=== PATIENT | female | born 1985 | race Hispanic/Latino ===

== ENCOUNTER 2020-11-26 11:48 | Emergency (ER) | payer MEDICAID, OTHER ==
[~2020-11-26] VITALS: Ht 149.9 cm; Wt 68.0 kg
[~2020-11-26 11:48] MED LIST: LANS1COM10 PO; TYL3 PO
[2020-11-26 11:49] VITALS: BP 124/74
[2020-11-26 12:17] LABS: HCG,QUAL RESULT NEGATIVE (NEGATIVE)
[2020-11-26 12:18] LABS: BASOPHILS % (AUTO) 0.8 % (0.0-5.0); EOSINOPHILS % (AUTO) 2.2 % (0.0-8.0); HEMATOCRIT 35.4 % (36-48); LYMPHOCYTES % (AUTO) 23.6 % (21.0-51.0); MEAN CORPUSCULAR HEMOGLOBIN 23.4 pg (27.0-33.0); MEAN CORPUSCULAR HGB CONC 31.6 g/dL (32.0-36.0); MEAN CORPUSCULAR VOLUME 73.9 fL (79-99); MONOCYTES % (AUTO) 7.4 % (3.0-13.0); NEUTROPHILS % (AUTO) 65.6 % (40.0-77.0); PLATELET COUNT (AUTO) 420 K/uL (130-400); RED BLOOD CELL COUNT(AUTO) 4.79 MIL/uL (4.00-5.50); RED CELL DISTRIBUTION WIDTH 15.7 % (11.0-15.5); WHITE BLOOD COUNT (AUTO) 8.5 K/uL (4.8-10.8)
[2020-11-26 12:20] LABS: APPEARANCE,URINE Clear (CLEAR); BILIRUBIN,URINE Negative (NEGATIVE); COLOR,URINE Yellow (YELLOW); GLUCOSE, URINE (UA) Negative (NEGATIVE); KETONES,URINE Negative (NEGATIVE); LEUKOCYTE ESTERASE ,URINE Negative (NEGATIVE); NITRATE,URINE Negative (NEGATIVE); OCCULT BLOOD,URINE Negative (NEGATIVE); PH,URINE 6.5 (5.0-8.0); PROTEIN,URINE Negative (NEGATIVE); UROBILINOGEN,URINE 0.2 mg/dL (0.2-1.0)
[2020-11-26 12:30] LABS: CREATININE 0.7 mg/dL (0.5-1.5); POTASSIUM 3.9 mmol/L (3.5-5.1)
[2020-11-26 12:32] LABS: INR 1.04 (0.85-1.15); PROTHROMBIN TIME 11.3 SEC (9.6-11.6)
[2020-11-26 12:34] LABS: ALBUMIN 3.8 g/dL (3.5-5.0); BILIRUBIN,TOTAL 0.4 mg/dL (0.2-1.0); TOTAL PROTEIN, SERUM 8.4 g/dL (6.0-8.3)
[2020-11-26] MEDS ORDERED: KETOROLAC 30MG VIAL (30MG/ML) IM SCH (14:00)
[2020-11-26 14:06] LABS: AMPHET/METH SCREEN,URINE NEGATIVE (NEGATIVE); BARBITURATE SCREEN, URINE NEGATIVE (NEGATIVE); BENZODIAZEPINES SCREEN,URINE NEGATIVE (NEGATIVE); CANNABINOID SCREEN,URINE NEGATIVE (NEGATIVE); COCAINE SCREEN,URINE NEGATIVE (NEGATIVE); OPIATE SCREEN,URINE NEGATIVE (NEGATIVE); PHENCYCLIDINE SCREEN,URINE NEGATIVE (NEGATIVE)
[2020-11-26] MEDS ORDERED: IBUP-2088 PO (14:10)
== END 2020-11-26 14:22 | disposition home or self-care (01) ==
LOC: EDH 11:48
DX: R07.89 Other chest pain (principal); Z79.899 Other long term (current) drug therapy; Z98.890 Other specified postprocedural states
CPT/HCPCS: 36415; 71045; 80053; 80305; 81003; 81025; 84484; 85025; 85610; 93005 ×2; 96372; 99285; J1885

== ENCOUNTER 2024-01-02 18:04 | Emergency (ER) | payer SELFPAY ==
[~2024-01-02] VITALS: Ht 152.4 cm; Wt 75.7 kg
[~2024-01-02 18:04] MED LIST changes: +IBUP-2088 PO
[2024-01-02 18:05] VITALS: BP 139/84; PULSE 99; RESP 14; TEMP 99.4; O2SAT 100
--- NOTE | 2024-01-02 18:24 | ERN ---
ED Note History of Present Illness Stated Complaint: RT UPPER EXTREMITY DOG BITE Chief Complaint: Animal Bite Time Seen by MD: 18:11 Dictation: PATIENT IS A 38-YEAR-OLD FEMALE HERE WITH PUNCTURE WOUNDS AND A DOG BITE TO THE RIGHT FOREARM ONSET 1-1/2 HOURS PRIOR TO ARRIVAL. SHE STATES THE DOG IS A DOG IN HER NEIGHBORHOOD THAT COMES AROUND WHEN SHE TAKES HER DOG OUTSIDE WHO WAS A FEMALE. SHE SAID TONIGHT SHE WALKED OUT OF THE HOUSE TO LET HER DOG GO TO THE RESTROOM, THE DOG LUNGED AT HER AND BIT HER TRYING TO GET TO HER DOG. SHE SAYS THE DOG CAN BE PICKED UP IN [place], THE POLICE REPORT HAS ALREADY BEEN MADE BY HER AND HER FAMILY. SHE DID NOT HAVE THE CASE NUMBER BUT SAID HER [id number] DOES HAVE THE NUMBER. LAST TETANUS SHOT IS UNKNOWN. , NO ACTIVE BLEEDING AND NO HISTORY OF MEDICATION ALLERGIES. Allergies: Coded Allergies: No Known Drug Allergies (Unverified Allergy, Unknown, 12/20/15) Home Meds Active Scripts Ibuprofen (Motrin/Advil) 600 Mg Tab, 600 MG PO Q6HPRN, #30 TAB Prov:MYRON ORTA NP 11/26/20 Lansoprazole/Amoxiciln/Clarith (Prevpac Patient Pack) 1 Each Combo..pkg, 1 EACH PO as directed, #1 COMB.PKG Prov:JOHNSON CARRILLO MD 03/21/16 Reported Medications Acetaminophen with Codeine (Tylenol with Codeine #3) 1 Tab Tab, 1 TAB PO Q4PRN for PAIN LEVEL 1 TO 5, TAB 03/19/16 Past Medical History Past Medical History: No Pertinent History Surgical History: Surgical History Other: x4 PSYCH History: no pertinent psych hx Family History: Negative Social History: Negative, Lives with family History: Not Applicable : 5 Para: 4 Aborts: 0 RN Note Reviewed/Agreed w/PFSH: Yes Review of System Dictation CONSTITUTIONAL: NEGATIVE EXCEPT FOR HPI HEAD/FACE: NEGATIVE EXCEPT FOR HPI EENT: NEGATIVE EXCEPT FOR HPI RESPIRATORY: NEGATIVE EXCEPT FOR HPI GASTROINTESTINAL/ABDOMINAL: NEGATIVE EXCEPT FOR HPI GENITOURINARY: NEGATIVE EXCEPT FOR HPI MUSCULOSKELETAL: NEGATIVE EXCEPT FOR HPI BITE CHARLES WITH PUNCTURE WOUNDS RIGHT FOREARM INTEGUMENTARY: NEGATIVE EXCEPT FOR HPI NEUROLOGICAL/PSYCH: NEGATIVE EXCEPT FOR HPI HEMATOLOGIC/LYMPHATIC: NEGATIVE EXCEPT FOR HPI ALL SYSTEMS NEGATIVE, EXCEPT NOTED ABOVE. 13 POINT REVIEW OF SYSTEMS ASSESSED AND ALL NEGATIVE EXCEPT FOR ABOVE. Initial Vital Sign VS Vital Signs Date Time Temp Pulse Resp B/P (MAP) Pulse Ox O2 Delivery O2 Flow Rate FiO2 01/02/24 18:05 99.3 99 14 139/94 100 Room Air 0 Physical Exam Dictation VITAL SIGNS REVIEWED GENERAL APPEARANCE: ALERT, ORIENTED X 3, MILD ACUTE DISTRESS, WELL DEVELOPED, NOURISHED. HEAD AND FACE: NON-TRAUMATIC. EYES: PERRL, PINK CONJUNCTIVAS, EYELID NO TRAUMA, ANTERIOR CHAMBER WITH ARCUS SENILIS. EARS: PINNAS INTACT AND NO SIGNS OF TRAUMA OR ERYTHEMA EAR CANALS CLEAR AND NO DISCHARGE TM NO ERYTHEMA NOSE: NO DISCHARGE, NO BLEEDING. OROPHARYNX: MOUTH NORMAL, TONGUE PINK, PHARYNX CLEAR,NO ERYTHEMA, TONSILS NO EXUDATES, NO ABSCESSES NOTED, MUCOUS MEMBRANE MOIST NECK: SUPPLE, NON-TENDER, NO THYROMEGALY, NO MASSES, NO JVD, NO BRUITS BREAST:DEFERRED CHEST:NO TENDERNESS, NO CREPITUS, NO PARADOXICAL MOVEMENT, NO RETRACTIONS LUNGS:CLEAR, WELL-VENTILATED, SYMMETRIC, NO RALES, NO WHEEZING, NO RHONCHI, NO STRIDOR, GOOD BREATH SOUNDS BILATERALLY HEART: REGULAR RATE, REGULAR RHYTHM, NO MURMUR, NO GALLOPS VASCULAR: NO PERIPHERAL EDEMA, ABDOMEN: SOFT, POSITIVE BOWEL SOUNDS, NONDISTENDED, NO GUARDING, NONTENDER, NO REBOUND, NO MASSES NO HEPATOMEGALY, NO SPLENOMEGALY, NO POE'S SIGN, NO HERNIAS. RECTAL: DEFERRED GENITAL: DEFERRED NEUROLOGICAL: NORMAL SPEECH, MOTOR FUNCTION INTACT, SENSORY FUNCTION INTACT MUSCULOSKELETAL: NECK NONTENDER, FULL RANGE OF MOTION, BACK NONTENDER, FULL RANGE OF MOTION, EXTREMITIES: NONTENDER, FULL RANGE OF MOTION SKIN: COLOR PINK, DOG BITE WITH PUNCTURE WOUNDS TIMES 3-4 TO RIGHT FOREARM. NO REPAIRS NECESSARY NO ACTIVE BLEEDING. DISTAL NEUROVASCULAR CMS INTACT. LYMPHATIC: DEFERRED Results (Laboratory/Radiology) Labs Reviewed?: Yes ED Course ED Course Orders Procedure Category Date Status Time Amox/Clav 875/125mg PHA 01/02/24 In Process Tab (Augmentin 875-1 18:30 Tetanus,Diphtheria PHA 01/02/24 In Process Tox [Adult] (Diphther 18:30 Neomy PHA 01/02/24 In Process Sulf/Bacitra/Polymyxin 18:30 Ibuprofen 800 Mg Tab PHA 01/02/24 In Process (Motrin) 18:30 Current Medications Medications (Trade) Dose Ordered Sig/Anyi Route PRN Reason Start Time Stop Time Status Last Admin Dose Admin Amoxicillin/ Clavulanate Potassium (Augmentin 875-125 Tablet) 1 each ONCE ONCE PO 01/02/24 18:30 01/02/24 18:31 Ibuprofen (moTRIN) 800 mg ONCE ONCE PO 01/02/24 18:30 01/02/24 18:31 Neomycin/ Polymyxin/ Bacitracin (Triple Antibiotic Ointment) 1 appl ONCE ONCE TP 01/02/24 18:30 01/02/24 18:31 Tetanus/ Diphtheria Toxoids Adsorbed (DiphthERIA-teTANUS TOXOID [ADULT]/ DECAVAC) 0.5 ml ONCE ONCE IM 01/02/24 18:30 01/02/24 18:31 Vital Signs Date Time Temp Pulse Resp B/P (MAP) Pulse Ox O2 Delivery O2 Flow Rate FiO2 01/02/24 18:05 99.3 99 14 139/94 100 Room Air 0 EIGHTEEN 20, PATIENT WILL BE DISCHARGED AFTER GIVEN TETANUS SHOT UPDATE AND ANTIBIOTICS FOR PROPHYLAXIS. POLICE REPORT HAS BEEN MADE SHE WILL FOLLOW UP WITH HER DOCTOR AT [facility] IN THE NEXT 1-2 DAYS Medical Decision Making MDM MEDICAL DECISION-MAKING BASED ON EMPIRIC TREATMENT FOR DOG BITE TO INCLUDE TETANUS SHOT UPDATE AND [id number] LOADING DOSE HERE. POLICE REPORT HAS ALREADY BEEN MADE BY THE PATIENT AND HER FAMILY AT HOME. SHE WILL FOLLOW UP WITH HER PRIMARY CARE DOCTOR IN 1-2 DAYS. DX & DISP Disposition: Discharge Departure Impression: Primary Impression: Dog bite of right forearm without complication Additional Impression: Puncture wound Condition: Stable Scripts Ibuprofen (Ibuprofen) 800 Mg Tablet 800 MG PO Q6H PRN for PAIN, #30 TAB Prov: NISH RIGGINS NP 01/02/24 Mupirocin (Bactroban 2% Oint) 2 % Oint 1 APPL TP TID for 5 Days, #15 GM 0 Refills apply to affected area(s) Prov: NISH RIGGINS NP 01/02/24 Amoxicillin/Potassium Clav (Amox Tr-K Clv 875-125 mg Tab) 875 Mg-125 Mg Tablet 1 EACH PO BID for 7 Days, #14 TAB 0 Refills Prov: NISH RIGGINS NP 01/02/24 Additional Instructions: FOLLOW-UP WITH PRIMARY CARE PROVIDER IN 1 TO 2 DAYS. TAKE MEDICATIONS DIRECTED HERE IN THE EMERGENCY ROOM. OKAY TO CONTINUE HOME MEDICATIONS UNLESS OTHERWISE DISCUSSED DURING YOUR VISIT IN THE EMERGENCY ROOM TODAY. RETURN TO YOUR NEAREST EMERGENCY ROOM IF SYMPTOMS WORSEN OR IF THERE IS NO IMPROVEMENT. CALL 911 IF YOU NEED IMMEDIATE ASSISTANCE. TAKE TYLENOL OR MOTRIN [id number] NEEDED AND IF NO CONTRAINDICATIONS ARE PRESENT. INCREASE ORAL HYDRATION. A WOUND CULTURE OR URINE CULTURE WAS ORDERED HERE IN THE EMERGENCY ROOM DEPARTMENT PLEASE FOLLOW-UP WITH PRIMARY CARE PROVIDER AND ADVISE THEM TO GET REPEAT PORTS FROM OUR FACILITY. IF YOU HAD ANY EMERITA WRAP/SPLINTS THAT WERE APPLIED HERE, PLEASE DO NOT REMOVE THEM UNTIL YOU SEE YOUR PRIMARY CARE OR SPECIALTY. TAKE ANTIBIOTICS DIRECTED UNTIL GONE. APPLY BACTROBAN OINTMENT3 TIMES A DAY FOR FIVE DAYS WITH DRESSING TWO PUNCTURE WOUNDS RIGHT FOREARM. MAKE SURE YOU COMPLETE THE POLICE REPORT AND FOLLOW UP WITH YOUR DOCTOR IN 1-2 DAYS. Referrals: SELF,REFERRAL (PCP) Time of Disposition: 18:23 I have reviewed the case, and I agree with, Diagnosis and Plan NISH RIGGINS NP Jan 02, 2024 18:24
[2024-01-02] MEDS ORDERED: IBUP-2071 PO (18:32)
[2024-01-02] MEDS ORDERED: AMOX1TAB16 PO (18:32)
[2024-01-02] MEDS ORDERED: MUPI22O TP (18:32)
[2024-01-02] MEDS: AMOX/CLAV 875/125MG TAB PO ONE (18:33)
[2024-01-02] MEDS: ibuPROFEN 800 MG TAB PO ONE (18:33)
[2024-01-02] MEDS: NEOMY SULF/BACITRA/POLYMYXIN B 1 EACH PACKET TP ONE (18:33)
[2024-01-02] MEDS: teTANUS/diphthERIA TOXOID [ADULT] 0.5 ML VIAL IM ONE (18:36)
== END 2024-01-02 18:47 | disposition home or self-care (01) ==
LOC: EDH 18:04
DX: S51.851A Open bite of right forearm, initial encounter (principal); Z79.899 Other long term (current) drug therapy; W54.0XXA Bitten by dog, initial encounter; Y93.89 Activity, other specified; Y92.89 Other specified places as the place of occurrence of the external cause; Y99.8 Other external cause status
CPT/HCPCS: 90471; 90714; 99283

== ENCOUNTER 2024-01-07 10:21 | Emergency (ER) | payer SELFPAY ==
[~2024-01-07] VITALS: Ht 149.9 cm; Wt 75.7 kg
[~2024-01-07 10:21] MED LIST changes: +AMOX1TAB16 PO; +IBUP-2071 PO; +MUPI22O TP
[2024-01-07 10:29] VITALS: BP 130/80; PULSE 75; RESP 16; TEMP 97.9; O2SAT 100
--- NOTE | 2024-01-07 10:36 | ERN ---
ED Note History of Present Illness Stated Complaint: WOUND CHECK, R/T DOG BITE Chief Complaint: Wound Check Time Seen by MD: 10:24 Dictation: PATIENT HERE FOR WOUND CHECK TWO PUNCTURE WOUNDS BY DOG BITE TO RIGHT FOREARM ON 01/02/2024. SHE DENIES FEVER CHILLS NAUSEA VOMITING., STATES SHE DID NOT GET ANY MEDICATIONS FOR ANTIBIOTICS. REVIEW OF RECORD FROM 01/01 SHOWS THAT AUGMENTIN 875, , BACTROBAN AND IBUPROFEN 800 WERE SENT TO [facility] IN [facility] SHE STATES SHE WENT TO THE [facility]. Allergies: Coded Allergies: No Known Drug Allergies (Unverified Allergy, Unknown, 12/20/15) Home Meds Active Scripts Ibuprofen (Ibuprofen) 800 Mg Tablet, 800 MG PO Q6H PRN for PAIN, #30 TAB Prov:NISH RIGGINS NP 01/02/24 Mupirocin (Bactroban 2% Oint) 2 % Oint, 1 APPL TP TID for 5 Days, #15 GM 0 Refills apply to affected area(s) Prov:NISH RIGGINS NP 01/02/24 Amoxicillin/Potassium Clav (Amox Tr-K Clv 875-125 mg Tab) 875 Mg-125 Mg Tablet, 1 EACH PO BID for 7 Days, #14 TAB 0 Refills Prov:NISH RIGGINS NP 01/02/24 Ibuprofen (Motrin/Advil) 600 Mg Tab, 600 MG PO Q6HPRN, #30 TAB Prov:MYRON ORTA NP 11/26/20 Lansoprazole/Amoxiciln/Clarith (Prevpac Patient Pack) 1 Each Combo..pkg, 1 EACH PO as directed, #1 COMB.PKG Prov:JOHNSON CARRILLO MD 03/21/16 Reported Medications Acetaminophen with Codeine (Tylenol with Codeine #3) 1 Tab Tab, 1 TAB PO Q4PRN for PAIN LEVEL 1 TO 5, TAB 03/19/16 Past Medical History Past Medical History: No Pertinent History Surgical History: Surgical History Other: x4 PSYCH History: no pertinent psych hx Family History: Negative Social History: Negative, Lives with family History: Not Applicable LMP: Dec 31, 2023 : 5 Para: 4 Aborts: 0 RN Note Reviewed/Agreed w/PFSH: Yes Review of System Dictation CONSTITUTIONAL: NEGATIVE EXCEPT FOR HPI HEAD/FACE: NEGATIVE EXCEPT FOR HPI EENT: NEGATIVE EXCEPT FOR HPI RESPIRATORY: NEGATIVE EXCEPT FOR HPI GASTROINTESTINAL/ABDOMINAL: NEGATIVE EXCEPT FOR HPI GENITOURINARY: NEGATIVE EXCEPT FOR HPI MUSCULOSKELETAL: NEGATIVE EXCEPT FOR HPI INTEGUMENTARY: NEGATIVE EXCEPT FOR HPI RIGHT FOREARM PUNCTURE WOUND WITH MINIMAL LOCALIZED INFLAMMATION. NEUROLOGICAL/PSYCH: NEGATIVE EXCEPT FOR HPI HEMATOLOGIC/LYMPHATIC: NEGATIVE EXCEPT FOR HPI ALL SYSTEMS NEGATIVE, EXCEPT NOTED ABOVE. 13 POINT REVIEW OF SYSTEMS ASSESSED AND ALL NEGATIVE EXCEPT FOR ABOVE. Initial Vital Sign VS Vital Signs Date Time Temp Pulse Resp B/P (MAP) Pulse Ox O2 Delivery O2 Flow Rate FiO2 01/07/24 10:24 97.9 75 16 130/86 100 Room Air 0 01/07/24 10:29 21 Physical Exam Dictation VITAL SIGNS REVIEWED GENERAL APPEARANCE: ALERT, ORIENTED X 3, NO ACUTE DISTRESS, WELL DEVELOPED, NOURISHED. HEAD AND FACE: NON-TRAUMATIC. EYES: PERRL, PINK CONJUNCTIVAS, EYELID NO TRAUMA, ANTERIOR CHAMBER WITH ARCUS SENILIS. EARS: PINNAS INTACT AND NO SIGNS OF TRAUMA OR ERYTHEMA EAR CANALS CLEAR AND NO DISCHARGE TM NO ERYTHEMA NOSE: NO DISCHARGE, NO BLEEDING. OROPHARYNX: MOUTH NORMAL, TONGUE PINK, PHARYNX CLEAR,NO ERYTHEMA, TONSILS NO EXUDATES, NO ABSCESSES NOTED, MUCOUS MEMBRANE MOIST NECK: SUPPLE, NON-TENDER, NO THYROMEGALY, NO MASSES, NO JVD, NO BRUITS BREAST:DEFERRED CHEST:NO TENDERNESS, NO CREPITUS, NO PARADOXICAL MOVEMENT, NO RETRACTIONS LUNGS:CLEAR, WELL-VENTILATED, SYMMETRIC, NO RALES, NO WHEEZING, NO RHONCHI, NO STRIDOR, GOOD BREATH SOUNDS BILATERALLY HEART: REGULAR RATE, REGULAR RHYTHM, NO MURMUR, NO GALLOPS VASCULAR: NO PERIPHERAL EDEMA, ABDOMEN: SOFT, POSITIVE BOWEL SOUNDS, NONDISTENDED, NO GUARDING, NONTENDER, NO REBOUND, NO MASSES NO HEPATOMEGALY, NO SPLENOMEGALY, NO POE'S SIGN, NO HERNIAS. RECTAL: DEFERRED GENITAL: DEFERRED NEUROLOGICAL: NORMAL SPEECH, MOTOR FUNCTION INTACT, SENSORY FUNCTION INTACT MUSCULOSKELETAL: NECK NONTENDER, FULL RANGE OF MOTION, BACK NONTENDER, FULL RANGE OF MOTION, EXTREMITIES: NONTENDER, FULL RANGE OF MOTION SKIN: COLOR PINK, DRY, TWO SUPERFICIAL PUNCTURE WOUNDS TO RIGHT MEDIAL FOREARM WITH MINIMAL LOCALIZED INFLAMMATION. NO INDURATION NO SWELLING NO DRAINAGE. DISTAL NEUROVASCULAR CMS INTACT TO RIGHT HAND. LYMPHATIC: DEFERRED Results (Laboratory/Radiology) Labs Reviewed?: Yes ED Course ED Course Vital Signs Date Time Temp Pulse Resp B/P (MAP) Pulse Ox O2 Delivery O2 Flow Rate FiO2 01/07/24 10:29 97.9 75 16 130/80 100 Room Air* 0 21 01/07/24 10:24 97.9 75 16 130/86 100 Room Air 0 1032, EXPLAINED TO PATIENT THAT THE PRESCRIPTIONS WENT TO [facility] PER HER INSTRUCTIONS ON THE 01/01. SHE STATES SHE WILL GO BECAUSE SHE WENT TO THE WRONG PHARMACY. Medical Decision Making MDM MEDICAL DISCHARGE MAKING BASED ON WOUND ASSESSMENT OF DOG BITE FROM 01/01 PATIENT WAS EDUCATED THAT HER PRESCRIPTIONS FROM THE DATE ARE AT [facility] SHE SAID SHE WILL FOLLOW UP. PLEASE NOTE THAT SIGN COPIES OF PRESCRIPTIONS WERE PROVIDED TO PATIENT. DX & DISP Disposition: Discharge Departure Impression: Primary Impression: Dog bite of right forearm without complication Additional Impression: Puncture wound Condition: Stable Additional Instructions: FOLLOW-UP WITH PRIMARY CARE PROVIDER IN 1 TO 2 DAYS. TAKE MEDICATIONS DIRECTED HERE IN THE EMERGENCY ROOM. OKAY TO CONTINUE HOME MEDICATIONS UNLESS OTHERWISE DISCUSSED DURING YOUR VISIT IN THE EMERGENCY ROOM TODAY. RETURN TO YOUR NEAREST EMERGENCY ROOM IF SYMPTOMS WORSEN OR IF THERE IS NO IMPROVEMENT. CALL 911 IF YOU NEED IMMEDIATE ASSISTANCE. TAKE TYLENOL OR MOTRIN [id number] NEEDED AND IF NO CONTRAINDICATIONS ARE PRESENT. INCREASE ORAL HYDRATION. A WOUND CULTURE OR URINE CULTURE WAS ORDERED HERE IN THE EMERGENCY ROOM DEPARTMENT PLEASE FOLLOW-UP WITH PRIMARY CARE PROVIDER AND ADVISE THEM TO GET REPEAT PORTS FROM OUR FACILITY. IF YOU HAD ANY EMERITA WRAP/SPLINTS THAT WERE APPLIED HERE, PLEASE DO NOT REMOVE THEM UNTIL YOU SEE YOUR PRIMARY CARE OR SPECIALTY. 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 SEE YOUR PRIMARY CARE DOCTOR FOR FOLLOW UP Referrals: NONE (PCP) I have reviewed the case, and I agree with, Diagnosis and Plan ATTESTATION BY PHYSICIAN I PERFORMED THE SUBSTANTIVE PORTION OF THE VISIT. I HAVE REVIEWED AND PERSONALLY MADE AND APPROVED THE MANAGEMENT PLAN THAT IS DOCUMENTED IN THE NOTE BY MYSELF FOR THE A PP. I ACKNOWLEDGED FOR RESPONSIBILITY FOR THE PATIENT'S MANAGEMENT PLAN. NISH RIGIGNS NP Jan 07, 2024 10:36 ROMINA LINO MD Jan 08, 2024 18:51
== END 2024-01-07 10:42 | disposition home or self-care (01) ==
LOC: EDH 10:21
DX: S51.851A Open bite of right forearm, initial encounter (principal); Z79.899 Other long term (current) drug therapy; Z98.890 Other specified postprocedural states; W54.0XXA Bitten by dog, initial encounter; Y93.89 Activity, other specified; Y92.89 Other specified places as the place of occurrence of the external cause; Y99.8 Other external cause status
CPT/HCPCS: 99282